=== PATIENT | female | born 1995 | race Caucasian/White ===

== ENCOUNTER 2021-04-24 11:05 | Emergency (ER) | payer OTHER ==
[~2021-04-24] VITALS: Ht 167.6 cm; Wt 54.4 kg
[2021-04-24 12:05] LABS: MCH 37.6 pg (26.0-34.0); MCV 107.4 fL (80.0-100.0); RBC 3.73 mil/uL (4.20-5.00); RDW 15.7 % (10.5-14.5); WBC 4.5 thou/uL (4.0-11.0)
[2021-04-24 12:11] LABS: CALCIUM 8.9 mg/dL (8.5-10.1); CREATININE 0.7 mg/dL (0.6-1.0); POTASSIUM 4.4 mmol/L (3.5-5.1)
[2021-04-24 12:20] LABS: TOTAL BILIRUBIN 0.4 mg/dL (0.2-1.0); TOTAL PROTEIN 7.5 g/dL (6.4-8.2)
[2021-04-24 12:57] LABS: URINE BILIRUBIN NEGATIVE (Negative); URINE BLOOD TRACE (Negative); URINE CLARITY CLEAR; URINE COLOR YELLOW; URINE GLUCOSE-RANDOM* NEGATIVE (Negative); URINE KETONES NEGATIVE (Negative); URINE NITRITE-REFLEX NEGATIVE (Negative); URINE PROTEIN (DIPSTICK) NEGATIVE (Negative); URINE SPECIFIC GRAVITY 1.015 (1.005-1.035)
[2021-04-24 12:58] LABS: URINE LEUKOCYTES-REFLEX 1+ (Negative)
[2021-04-24 13:04] LABS: AMP/METHAMP Negative (Negative); BARBITURATES Negative (Negative); BENZODIAZEPINES Negative (Negative); COCAINE Negative (Negative); METHADONE Negative (Negative); OPIATES Negative (Negative); PCP Negative (Negative)
[2021-04-24 13:27] LABS: CASTS None Seen /LPF (None Seen); SQUAMOUS 4-10 Moderate /LPF (0-3)
[2021-04-24 13:28] LABS: BACTERIA-REFLEX 1-9 Few /HPF (None Seen); CRYSTALS None Seen /LPF (None Seen); URINE RBC 1-2 Rare /HPF (NONE SEEN); URINE WBC-REFLEX 6-15 Few /HPF (0-5)
--- NOTE | 2021-04-24 16:30 | NUR ---
NAM contacted [facility] and left her phone number in their pager system. SW contacted [facility] beds at the [facility] and was told they just received pt's referral. SW reviewed pt's ED profile and saw that pt arrived not very long ago and does not have any notes. Pt's referrals were likely sent within the last 30 min. SW team will continue to follow pt during her stay on the ED.
--- NOTE | 2021-04-25 13:57 | NUR ---
Follow up on ED patient pending placement for Behavioral health. Contacted [facility] (In-pt) [phone] and have no beds. Did speak with [facility] at [phone]/fax [phone]; they asked that the packet be re-sent as they did not have all of what they needed and admitted this was on their end and did apologize. ED/ Tonia did send packet to [facility]. Per Tonia in the ED today she was told that [facility] [phone] is pending waiting on discharges. I then spoke with Clement in the access center at [facility] who states he believes they have a "75%" chance of accepting the patient today and will call the ED once the discharges start coming in. [place] [phone] [place] above. Will continue to follow for placement.
[2021-04-25 21:23] VITALS: BP 129/85
== END 2021-04-24 20:50 ==
LOC: ER 11:05
PROVIDERS: Student in an Organized Health Care Education/Training Program
DX: F32.9 Major depressive disorder, single episode, unspecified (principal); Z20.822 Contact with and (suspected) exposure to COVID-19; R45.851 Suicidal ideations